=== PATIENT | female | born 1955 | race Caucasian/White ===

== ENCOUNTER → 2020-07-20 14:36 | Outpatient (CLI) | payer OTHER, SELFPAY ==
--- NOTE | ~2020-07-20 | CT_ITS ---
EXAMINATION: CT abdomen pelvis wo/w con DATE: 07/20/2020 15:38 INDICATION: Recurrent urinary tract infections and left lower quadrant abdominal pain. TECHNIQUE: Computed tomography (CT) of the abdomen and pelvis was performed without intravenous contr ast. CT of the abdomen and pelvis was then performed with a total of 130 mL Omnipaque-350 intravenous contrast using a double-bolus technique for simultaneous opacification of the renal parenchyma and r enal collecting system. The dose-length product was 2256.28 mGy-cm. COMPARISON: None FINDINGS: Lung bases are clear. Heart size is normal. No pericardial or pleural effusion. Very small sliding-ty pe hiatal hernia. Calcified paraesophageal and portacaval lymph nodes along with a few small hepatic and splenic calcifications consistent with old granulomatous disease. Gallbladder, pancreas and bilat eral adrenal glands are normal. There is mild colonic diverticulosis with a sigmoid predominance. Th ere is no adjacent inflammatory change to suggest diverticulitis. Small bowel and appendix are normal . Kidneys and ureters are normal with symmetric enhancement and no urolithiasis, no hydroureteronephros is and no perinephric/ureteral stranding. The bilateral ureters are opacified in their entirety with no urothelial regularity is along the contrast opacified portions of the renal collecting systems and ureters. There is also contrast filling the bladder. There is a 12.3 x 7.4 x 9.8 cm cystic lesion in the central pelvis which does not opacify with contrast to suggest a communicating bladder diverticu lum. The lesion which likely represents ovarian cyst abuts and distorts the peripheral contours of hoda th ovaries and it remains indeterminate from which side this arises, slightly favor the left ovary. A lternatively this could represent an independent peritoneal cyst. The uterus is not identified and has likely been surgically resected. No free intraperitoneal gas or fluid. No pathologically enlarged abdominal or pelvic lymphadenopathy. Severe spondylosis at the lumb osacral junction with moderate spondylosis in the more cephalad lumbar and lower thoracic spine. Grad e 1 anterolisthesis L4 on L5. Sclerotic bone island at T12. IMPRESSION: 1. 12.3 x 7.4 x 9.8 similar simple during cystic lesion in the central pelvis most likely an ovarian cyst, favor left ovary right, or potentially a peritoneal cyst. No evident communication with the con trast filled bladder to suggest a bladder diverticulum. Reviewed, dictated and finalized at location H. TABLE FARM WORKER IMPRESSION: 1. 12.3 x 7.4 x 9.8 similar simple during cystic lesion in the central pelvis m ost likely an ovarian cyst, favor left ovary right, or potentially a peritoneal cyst. No evident communication with the contrast filled bladder to suggest a b ladder diverticulum.
--- NOTE | ~2020-07-20 | XR_ITS ---
EXAMINATION: XR abdomen/kub 1V DATE: 07/20/2020 14:56 INDICATION: Bladder diverticulum TECHNIQUE: A supine view of the abdomen on 2 radiographs was obtained. COMPARISON: CT dated 07/20/2020 FINDINGS: Normal bowel gas pattern. No suspicious calcifications in the abdomen or pelvis. There is an approxim ately 11 x 8.5 cm masslike density in the central pelvis which impresses upon the dome of the bladder . This appears to correspond to the large either ovarian or peritoneal cyst evident on prior CT. Ther e was no evident extension of contrast from the contrast filled bladder into the cystic lesion on the delayed post contrast images which would be inconsistent with a bladder diverticulum. IMPRESSION: 1. 11 x 8.5 cm masslike density in the central pelvis which based on prior CT images most likely repr esents either an ovarian or peritoneal cyst. See separate CT report for further detail. Reviewed, dictated and finalized at location A. ARCH PHARMACIST IMPRESSION: 1. 11 x 8.5 cm masslike density in the central pelvis which based on prior CT i mages most likely represents either an ovarian or peritoneal cyst. See separate CT report for further detail.
[2020-07-20 15:10] LABS: Estimated Glomerular Filt Rate > 60
== END ==
PROVIDERS: PCP Family Medicine; Visit Provider Nurse Practitioner Adult Health
DX: N32.3 Diverticulum of bladder (principal)
CPT/HCPCS: 74018; 74178; Q9967

== ENCOUNTER → 2022-09-19 07:48 | Outpatient (CLI) | payer MEDICARE, SELFPAY ==
--- NOTE | ~2022-09-19 | XR_ITS ---
Supine and upright views of the abdomen Clinical history: Hematuria COMPARISON: 07/20/2020 Findings: Bowel gas pattern is nonspecific. Moderate to large stool burden noted. No evidence for obs truction or free air. No abnormal mass lesion or calcification is seen. Osseous structures are intact . Impression: No evidence of renal stone. Moderate to large stool burden. Reviewed, dictated and finalized at [facility]. ET RESEARCH ASSISTANT Impression: No evidence of renal stone. Moderate to large stool burden.
--- NOTE | ~2022-09-19 | CT_ITS ---
CT of the Abdomen and Pelvis: Indication: Hematuria Technique: 2.5 mm axial scans were obtained through the abdomen and pelvis prior to and following in travenous administration of 130 cc of Omnipaque 350. Dose reduction technique was used on this scan b y utilizing automated exposure control and iterative reconstruction technique. The dose-length produc t (DLP) was 2286.69 mGy-cm. COMPARISON: 07/20/2020 Findings: Scans through the lung bases are unremarkable. The liver, spleen, pancreas, gallbladder, adrenals and kidneys are within normal limits. Ureters are completely opacified, and are unremarkable. No evidence of aortic aneurysm. There is a densely calcif ied probable lymph node in the superior nathanael hepatis region, unchanged. No bowel obstruction or bowel wall thickening. There is no evidence to suggest acute appendicitis. Images through the pelvis were performed. Urinary bladder unremarkable. Patient is post hysterectomy. No pelvic mass seen. No ascites. Impression: No etiology for hematuria identified on this exam. No significant abnormalities seen. Reviewed, dictated and finalized at [facility]. ATIENT THERAPIST Impression: No etiology for hematuria identified on this exam. No significant abnormalities seen.
[2022-09-19 08:30] LABS: Estimated Glomerular Filt Rate > 60
== END ==
PROVIDERS: PCP Nurse Practitioner Family; Visit Provider Nurse Practitioner Family
DX: R31.0 Gross hematuria (principal)
CPT/HCPCS: 74018; 74178; Q9967